=== PATIENT | female | born 1975 | race Caucasian/White ===

== ENCOUNTER → 2021-07-10 14:04 | Outpatient (CLI) | payer OTHER, SELFPAY ==
--- NOTE | 2021-07-10 | DI.MG.S_ITS ---
UNILATERAL LEFT DIGITAL DIAGNOSTIC MAMMOGRAM 3D/2D: 07/10/2021 CLINICAL: Short term follow up for the left breast. Comparison is made to exams dated: 12/31/2020 ultrasound, 12/31/2020 mammogram, 12/15/2020 mammogram, and 08/11/2018 mammogram - [facility]. The tissue of left breast is heterogeneously dense. This may lower the sensitivity of mammography. There is a possible 5 mm oval equal density asymmetry with a circumscribed margin in the left breast at 1 o'clock middle depth. This is not significantly changed and was not seen on the prior ultrasound. There also is a 1.3 cm oval asymmetry in the left breast middle depth superior region seen on the mediolateral oblique view only. Finding is seen only on tomography. This is not significantly changed and was not seen on the prior ultrasound. No other significant masses or calcifications are seen in the breast. IMPRESSION: PROBABLY BENIGN The possible 5 mm oval equal density asymmetry in the left breast at 1 o'clock middle depth is probably benign. The 1.3 cm oval asymmetry in the left breast middle depth superior region seen on the mediolateral oblique view only is probably benign. A follow-up mammogram in 6 months is recommended to demonstrate stability. This exam was interpreted at Station ID: [id number]. NOTE: For mammograms, a report in lay terms will be sent to the patient. Approximately 15% of breast malignancies will not be visualized mammographically. In the management of a palpable breast mass, a negative mammogram must not discourage biopsy of a clinically suspicious lesion. Electronically Signed By: Zacarias [email or web address]:07/10/2021 15:00:59 letter sent: Followup Recommended ACR BI-RADS Category 3: Probably benign [id number]
== END ==
PROVIDERS: PCP Registered Nurse; Referring Provider Registered Nurse; Visit Provider Registered Nurse
DX: R92.8 Other abnormal and inconclusive findings on diagnostic imaging of breast (principal); N64.89 Other specified disorders of breast
CPT/HCPCS: 77065; G0279

== ENCOUNTER → 2025-09-09 09:42 | Outpatient (CLI) | payer OTHER, SELFPAY ==
--- NOTE | 2025-09-09 09:44 | DI.CT.S_ITS ---
PROCEDURE: CT HIP LEFT WITHOUT CON INDICATIONS: TEAR TECHNIQUE: Noncontrast 3 mm axial sections acquired through the bony pelvis. Additional 3 mm axial sections acquired through the symptomatic hip joint, with coronal and sagittal reformats. For radiation dose reduction, the following was used: automated exposure control, adjustment of mA and/or kV according to patient size. COMPARISON: [facility], CR, XR PELVIS WITH LATERAL HIP LEFT, 08/21/2024, 13:08. Outside Film, MR, MR HIP LEFT WITHOUT CONTRAST, 07/13/2024, 8:32. FINDINGS: Image quality: Excellent. Bones: Postsurgical changes from right total hip arthroplasty with associated metal streak artifact. No acute fracture or dislocation. Moderate to severe joint space narrowing is seen in the left hip with subchondral sclerosis and marginal osteophytes, most notably at the anterior superior hip or there is full-thickness joint space narrowing. A small osseous protuberance is seen at the anterior superior femoral head/neck junction that could contribute to cam-type femoroacetabular impingement. Soft tissues: No significant joint effusion. The articular cartilages, labrum, ligaments, tendons are not well evaluated with CT. The visualized musculature is normal in bulk. Tiny fat containing periumbilical hernia. Multiple diverticula are seen in the colon without acute inflammatory changes. Intrauterine device is seen in expected position. IMPRESSION: 1. Moderate to severe left hip osteoarthrosis. 2. Right total hip arthroplasty. Approved by: Zacarias Leon M.D. on 09/10/2025 at 12:54
== END ==
LOC: CT 09:43
PROVIDERS: PCP Registered Nurse; Referring Provider Registered Nurse; Visit Provider Orthopaedic Surgery
DX: S73.192D Other sprain of left hip, subsequent encounter (principal); M16.12 Unilateral primary osteoarthritis, left hip; Z96.641 Presence of right artificial hip joint; X58.XXXD Exposure to other specified factors, subsequent encounter
CPT/HCPCS: 73700